=== PATIENT | female | born 1945 | race Caucasian/White ===

== ENCOUNTER 2016-08-19 11:49 | Emergency (ER) | payer OTHER, BC ==
[2016-08-19 11:54] VITALS: TEMP 97.4; BMI 19.6
--- NOTE | 2016-08-19 12:07 | PDOC ---
History of Present Illness - General History Source: Patient Exam Limitations: No Limitations - History of Present Illness Initial Comments: 08/19/16 12:50 The patient is a 70 year old female with significant past medical history of hyperlipidemia who presents to the emergency department with shortness of breath for the last 6 days. The patient states that her symptoms started last weekend while she was walking. She states she is very active and walks about 6- 7 miles a day. She states that her SOB is worse on exertion. She also reports orthopnea and has been using more pillows with sleeping at night. She denies any associated chest pain or palpitations. The patient saw her PMD Dr. Wu on Monday and was given a nebulizer which slightly alleviated her symptoms. She denies any other alleviating factors. She denies hemoptysis and cough. The patient denies any sick contacts or recent travels. She denies any recent illness, fevers, or chills. <Brynn Lopez - Last Filed: 08/19/16 14:25> <Iam Harvey - Last Filed: 08/19/16 14:32> - General Chief Complaint: Shortness of Breath Stated Complaint: (PCP SENT) SOB Time Seen by Provider: 08/19/16 12:00 Past History <Brynn Lopez - Last Filed: 08/19/16 14:25> - Past Medical History Cardiac Disorders: Yes (PROLAPSE MITRAL VALVE) GI Disorders: Yes (GERD) - Immunization History Immunization Up to Date: Yes - Psycho/Social/Smoking Cessation Hx Anxiety: No Suicidal Ideation: No Smoking Status: No Smoking History: Never smoked Have you smoked in the past 12 months: No Number of Cigarettes Smoked Daily: 0 Information on smoking cessation initiated: No Hx Alcohol Use: No Drug/Substance Use Hx: No Substance Use Type: None <Iam Harvey - Last Filed: 08/19/16 14:32> - Past Medical History Allergies/Adverse Reactions: Allergies Allergy/AdvReac Type Severity Reaction Status Date / Time erythromycin base Allergy Verified 08/19/16 11:51 [Erythromycin Base] honey Allergy Verified 08/19/16 11:51 shellfish derived Allergy Verified 08/19/16 11:51 Home Medications: Ambulatory Orders Gabapentin [Neurontin] 300 mg PO DAILY 07/15/12 Metoprolol Tartrate [Lopressor] 12.5 mg PO DAILY 07/15/12 Calcium Carbonate [Calcium] 500 mg PO DAILY 08/19/16 Cholecalciferol (Vitamin D3) [Vitamin D3] 400 unit PO BID 08/19/16 Cyclosporine [Restasis] 1 each OP DAILY 08/19/16 Raloxifene HCl [Evista (Nf) -] 60 mg PO DAILY 08/19/16 Review of Systems - Review of Systems Able to Perform ROS?: Yes Comments:: 08/19/16 12:50 CONSTITUTIONAL: No fever, no chills, no fatigue EYES: No visual changes ENT: No ear pain, no sore throat CARDIOVASCULAR: No chest pain, no palpitations RESPIRATORY: +SOB. No cough GI: No abdominal pain, no nausea, no vomiting, no constipation, no diarrhea GENITOURINARY: No dysuria, no frequency, no hematuria MUSCULOSKELETAL: No back pain, no joint pain, no myalgias SKIN: No rash NEURO: No headache <Brynn Lopez - Last Filed: 08/19/16 14:25> *Physical Exam - Vital Signs Last Vital Signs Temp Pulse Resp BP Pulse Ox 97.4 F L 79 20 139/74 100 08/19/16 11:52 08/19/16 11:52 08/19/16 11:52 08/19/16 11:52 08/19/16 12:36 - Physical Exam Comments: 08/19/16 12:51 CONSTITUTIONAL: Well-appearing; well-nourished; in no apparent distress HEAD: Normocephalic; atraumatic EYES: PERRL; EOM intact ENMT: External appears normal; normal oropharynx NECK: Supple; non-tender; no cervical lymphadenopathy CARD: Normal S1, S2; no murmurs, rubs, or gallops RESP: Normal chest excursion with respiration; breath sounds clear and equal bilaterally; no wheezes, rhonchi, or rales ABD: Soft, non-distended; non-tender; no palpable organomegaly, no palpable hernias EXT: Normal ROM in all four extremities; non-tender to palpation; distal pulses intact SKIN: Warm, dry, no rash NEURO: No focal neurological deficiencies. <Brynn Lopez - Last Filed: 08/19/16 14:25> - Vital Signs Last Vital Signs Temp Pulse Resp BP Pulse Ox 97.4 F L 79 20 139/74 99 08/19/16 11:52 02/17/17 11:52 08/19/16 11:52 08/19/16 11:52 08/19/16 11:52 <Iam Harvey - Last Filed: 08/19/16 14:32> Heart Score/ECG Review - ECG Intrepretation Comment:: 08/19/16 13:25 Vent rate: 72 bpm KS interval: 120 ms QRS duration: 78 ms Normal sinus rhythm Possible left atrial enlargement <Brynn Lopez - Last Filed: 08/19/16 14:25> ED Treatment Course - LABORATORY CBC & Chemistry Diagram: 08/19/16 12:34 08/19/16 12:34 - ADDITIONAL ORDERS Additional order review: 08/19/16 12:34 RBC 4.59 MCV 90.8 MCHC 32.8 RDW 14.1 MPV 11.0 Neutrophils % 57.0 Lymphocytes % 32.7 D Monocytes % 8.1 Eosinophils % 1.3 Basophils % 0.9 <Brynn Lopez - Last Filed: 08/19/16 14:25> - LABORATORY CBC & Chemistry Diagram: 08/19/16 12:34 08/19/16 12:34 <Iam Harvey - Last Filed: 08/19/16 14:32> Medical Decision Making - Medical Decision Making 08/19/16 14:28 Patient is a 70-year-old female with history of hyperlipidemia who presents with 7-10 days of nonspecific dyspnea and sensation of air hunger that is exacerbated with exertion. Patient also reports uri-type symptoms. In the ER, patient is awake and alert, hemodynamically stable. Patient's oxygen saturation on room air at rest is noted to be 100% which does not change after brisk exertion. Chest x-ray reveals no evidence of cardiomegaly, there is no infiltrates or effusion. EKG is noted for sinus rhythm without evidence of acute ischemia. D-dimer is within normal limit (patient is a low probability for PE by Wells criteria;) I do not suspect ACS or PE at this time. Mucous plug versus reactive airway disease is suspected. Case discussed with Dr. Wu. He agrees with continuation of albuterol nebulizer and Mucomyst. Patient will follow-up as an outpatient further evaluation. <Iam Harvey - Last Filed: 08/19/16 14:32> *DC/Admit/Observation/Transfer - Attestations Scribe Attestion: 08/19/16 12:51 Documentation prepared by Brynn Lopez, acting as medical receptionist medical assistant for Iam Harvey MD. <Brynn Lopez - Last Filed: 08/19/16 14:25> - Attestations Physician Attestion: 08/19/16 14:28 The documentation was prepared by the scribe under my direct supervision. I have reviewed the documentation which correctly represents the findings, medical decision-making and critical action taken by me. <Iam Harvey - Last Filed: 08/19/16 14:32> Diagnosis at time of Disposition: Dyspnea Qualifiers: Dyspnea type: unspecified Qualified Code(s): R06.00 - Dyspnea, unspecified - Discharge Dispostion Disposition: HOME Condition at time of disposition: Stable - Referrals Referrals: Donald Wu MD [Primary Care Provider] - - Patient Instructions Printed Discharge Instructions: DI for Shortness of Breath
[2016-08-19 12:42] LABS: BASOPHIL 0.9 % (0-2.0); EOSINOPHIL 1.3 % (0-4.5); MCH 29.7 pg (25.7-33.7); MCHC 32.8 g/dl (32.0-36.0); MEAN CELL VOLUME 90.8 fl (80-96); PLATELET COUNT 231 K/MM3 (134-434); RDW 14.1 % (11.6-15.6); WHITE BLOOD COUNT 8.5 K/mm3 (4.0-10.0)
[2016-08-19 13:05] LABS: ALBUMIN 3.7 g/dl (3.4-5.0); ANION GAP 8 (8-16); BILIRUBIN,TOTAL 0.4 mg/dL (0.2-1.0); CALCIUM 9.1 mg/dL (8.5-10.1); CO2 29 mmol/L (21-32); CREATININE 0.7 mg/dL (0.55-1.02); GLUCOSE,RANDOM 86 mg/dL (74-106); SGOT/AST 19 U/L (15-37); SGPT/ALT 21 U/L (12-78); TOT PROT 6.8 g/dl (6.4-8.2)
[2016-08-19 13:08] LABS: ALK PHOS 78 U/L (45-117); TROPONIN I < 0.02 ng/ml (0.00-0.05)
[2016-08-19 14:30] VITALS: BP 108/50; PULSE 87
--- NOTE | 2016-08-20 13:42 | EKG ---
Test Reason : Blood Pressure : / mmHG Vent. Rate : 072 BPM Atrial Rate : 072 BPM P-R Int : 120 ms QRS Dur : 078 ms QT Int : 394 ms P-R-T Axes : 089 045 062 degrees QTc Int : 431 ms NORMAL SINUS RHYTHM POSSIBLE LEFT ATRIAL ENLARGEMENT NONSPECIFIC ST ABNORMALITY ABNORMAL ECG WHEN COMPARED WITH ECG OF 15-JUL-2012 10:02, NO SIGNIFICANT CHANGE WAS FOUND Confirmed by AMANDA CUNNINGHAM MD ([id number]) on 08/20/2016 1:41:41 PM Referred By: Confirmed By:AMANDA CUNNINGHAM MD
== END 2016-08-19 14:41 | disposition home or self-care (01) ==
LOC: JER 11:49
DX: R06.00 Dyspnea, unspecified (principal); E78.5 Hyperlipidemia, unspecified; K21.9 Gastro-esophageal reflux disease without esophagitis; I34.1 Nonrheumatic mitral (valve) prolapse
CPT/HCPCS: 36415; 71020-TC; 80053; 82550; 84484; 85025; 85379; 93005; 93010; 99283-25

== ENCOUNTER 2016-09-20 05:41 | Day surgery (SDC) | payer OTHER, BC ==
[2016-09-15 11:07] VITALS: BMI 20.7
[2016-09-20] MEDS ORDERED: POVIDONE-IODINE 5% OPHTHALMIC PREP 30 ML SOLUTION ONE (06:34)
[2016-09-20] MEDS ORDERED: BUPIVACAINE HCL/PF 0.5% (5MG/ML) 10 ML VIAL ONE (06:34)
[2016-09-20] MEDS ORDERED: BACITRACIN 3.5 GM OPTHALMIC OINT TUBE ONE (06:34)
[2016-09-20] MEDS ORDERED: TETRACAINE 0.5% OPHTH SOLN 2 ML BOTTLE ONE (06:34)
[2016-09-20] MEDS ORDERED: GUM MASTIC/STORAX/MSAL/ALCOHOL 1 DRP DROPSBTL MC ONE (06:35)
[2016-09-20] MEDS ORDERED: LIDOCAINE 1%-EPI 1:100,000 30 ML MDV IJ ONE (06:35)
[2016-09-20] MEDS ORDERED: PROPOFOL 20 ML ONE (06:52)
[2016-09-20] MEDS ORDERED: MIDAZOLAM HCL 2 MG/2 ML SINGLE DOSE VIAL ONE (06:52)
[2016-09-20] MEDS ORDERED: LIDOCAINE HCL/PF 2% SDV 5ML VIAL ONE (06:53)
[2016-09-20] MEDS ORDERED: SUCCINYLCHOLINE CHLORIDE 200 MG/10 ML VIAL ONE (07:01)
[2016-09-20] MEDS ORDERED: DEXAMETHASONE SOD PHOSPHATE 4 MG/1 ML VIAL ONE (07:41)
[2016-09-20] MEDS ORDERED: ACETAMINOPHEN 500 MG TABLET (FP) PO PRN (08:01)
[2016-09-20] MEDS ORDERED: oxyCODONE HCL 5 MG TABLET PO PRN (08:33)
[2016-09-20] MEDS ORDERED: ACETAMINOPHEN 325 MG TABLET (FP) PO ONE (08:35)
[2016-09-20 09:05] VITALS: TEMP 98.9
--- NOTE | 2016-09-20 09:15 | OP ---
DATE OF OPERATION: 09/20/2016 PREOPERATIVE DIAGNOSIS: Involutional ptosis, right upper lid, status post blepharoplasty years ago. POSTOPERATIVE DIAGNOSIS: Involutional ptosis, right upper lid, status post blepharoplasty years ago. PROCEDURE: Levator advancement reattachment, right upper lid. SURGEON: Nafisa Cosme MD ANESTHESIA: Local with sedation. COMPLICATONS: None. ESTIMATED BLOOD LOSS: Less than 0.5 mL. OPERATION REPORT: Patient was brought to the operating room, placed on the operating room table. Vital signs monitored by Anesthesia. Tetracaine was placed in both eyes. Time-out was performed. Lid crease was marked 9.5-10 above the lid margin. Patient was given intravenous sedation, alcohol prep was performed, following which 0.5 mL of 2% Xylocaine with 1:100,000 epinephrine was injected in the marked lid crease, central portion of the eyelid, and massage was applied for hemostasis. Patient was prepped and draped in the usual sterile fashion exposing both eyes, and the lid crease incision marked previously was now incised with a 15 blade. Hemostasis was achieved with the Hat[place] needle throughout the case. Antibiotic irrigation was used throughout the case. The Hat[place] needle was used to dissect through the orbicularis muscle, and the orbicularis was dissected superiorly. There was no preexisting lid crease in deep superior , and there was no visible preaponeurotic fat. The anterior dissection was carried in the suborbicularis plane superiorly until almost to the orbital rim to ensure that we were not incising the levator, and then, the septum was identified high near the rim. It was opened, widely exposing the completely dehisced levator, and therefore the suborbicularis plane was dissected off the anterior tarsus inferiorly, and the identified edge of the levator was advanced, released from septum across the lid, and it was sutured to the superior and anterior tarsus with partial thickness double-arm 6-0 Vicryl sutures centrally and temporally. These were tied and relocated as needed when the patient was allowed to wake up, and the lid was adjusted to be in a similar contour to the contralateral eyelid, and the operation resulted in the eyelid being approximately 1 mm below the limbus, which was slightly higher in the contralateral side, but it was felt that there was probably effect of the anesthetic, in the upright position, it was acceptable. Antibiotic irrigation was performed. The wound was closed with running 6-0 plain, Bacitracin ointment was placed in the eye and on sutures, and the patient was taken to the recovery room in stable condition. NAFISA COSME M.D. LORI/[id number]
[2016-09-20 09:29] VITALS: BP 112/52; PULSE 66
== END 2016-09-20 09:30 | disposition home or self-care (01) ==
LOC: FASU 05:41
PROVIDERS: ATTEND Ophthalmology
PROC: 08SN0ZZ Reposition Right Upper Eyelid, Open Approach (ICD-10-PCS; principal; 2016-09-20 07:25)
DX: H02.401 Unspecified ptosis of right eyelid (principal)
CPT/HCPCS: 94760